=== PATIENT | female | born 1965 | race Caucasian/White ===

== ENCOUNTER 2023-01-07 21:37 | Emergency (ER) | payer BC ==
[2023-01-07] MEDS ORDERED: Ketorolac Tromethamine 30 MG/ML VIAL ONE (23:59)
== END 2023-01-08 00:14 | disposition home or self-care (01) ==
LOC: CSHERS 21:37
DX: S82.141A Displaced bicondylar fracture of right tibia, initial encounter for closed fracture (principal); S50.312A Abrasion of left elbow, initial encounter; E11.9 Type 2 diabetes mellitus without complications; I10 Essential (primary) hypertension; F17.210 Nicotine dependence, cigarettes, uncomplicated; W06.XXXA Fall from bed, initial encounter
CPT/HCPCS: 96372; J1885